=== PATIENT | female | born 1960 | race Hispanic/Latino ===

== ENCOUNTER → 2021-05-06 | Outpatient (CLI) | payer BC ==
[~2021-05-06] MED LIST: ENAL2.5T16 PO; ESTR-7 PO
== END | disposition home or self-care (01) ==
LOC: SHCH 13:41
PROVIDERS: ATTEND Internal Medicine Cardiovascular Disease
DX: R07.9 Chest pain, unspecified (principal); I10 Essential (primary) hypertension; E78.5 Hyperlipidemia, unspecified; R55 Syncope and collapse
CPT/HCPCS: 93306; 93356

== ENCOUNTER 2022-09-04 06:55 | Day surgery (SDC) | payer BC ==
[2022-09-01 12:13] LABS: BASOPHILS % (AUTO) 0.2 % (0.0-5.0); EOSINOPHILS % (AUTO) 0.3 % (0.0-8.0); HEMATOCRIT 41.9 % (36-48); LYMPHOCYTES % (AUTO) 31.7 % (21.0-51.0); MEAN CORPUSCULAR HEMOGLOBIN 30.6 pg (27.0-33.0); MEAN CORPUSCULAR HGB CONC 32.7 g/dL (32.0-36.0); MEAN CORPUSCULAR VOLUME 93.7 fL (79-99); MONOCYTES % (AUTO) 6.6 % (3.0-13.0); PLATELET COUNT (AUTO) 219 K/uL (130-400); RED BLOOD CELL COUNT(AUTO) 4.47 MIL/uL (4.00-5.50); RED CELL DISTRIBUTION WIDTH 12.6 % (11.0-15.5); WHITE BLOOD COUNT (AUTO) 6.5 K/uL (4.8-10.8)
[2022-09-01 12:22] VITALS: BP 140/79
[2022-09-04] VITALS (16 sets, daily range): BP systolic 104–142; BP diastolic 51–77
[~2022-09-04] VITALS: Ht 175.3 cm; Wt 79.5 kg
[2022-09-04] MEDS ORDERED: LACTATED RINGERS 1000ML 1,000 ML IV ONE (07:16)
[2022-09-04] MEDS ORDERED: LIDOCAINE HCL-MPF 1% 5ML AMP IJ ONE (07:29)
[2022-09-04] MEDS ORDERED: PROPOFOL 10 MG/ML 20ML VIAL IV ONE (07:29)
[2022-09-04] MEDS ORDERED: FENTANYL CITRATE PF 50 MCG/1 ML 2ML VIAL ONE (07:30)
[2022-09-04] MEDS: CEFAZOLIN SODIUM 2 GM VIAL IVPB SCH ×2 (07:48→08:08)
[2022-09-04] MEDS ORDERED: ONDANSETRON 4MG INJ ONE ×2 (07:48→09:21)
[2022-09-04] MEDS ORDERED: EPHEDRINE SULFATE 50 MG/ML AMPULE ONE (08:30)
[2022-09-04] MEDS ORDERED: BUPIVACAINE/PF 0.25% 30ML VIAL IJ ONE (08:33)
[2022-09-04] MEDS ORDERED: KETOROLAC 30MG VIAL (30MG/ML) ONE (09:21)
[2022-09-04] MEDS ORDERED: MORPHINE 2 MG SYG ONE (09:22)
[2022-09-04] MEDS ORDERED: IBUP-1493 PO (10:05)
== END 2022-09-04 10:35 | disposition home or self-care (01) ==
LOC: DAH 06:55
PROVIDERS: ATTEND Surgery
DX: D17.1 Benign lipomatous neoplasm of skin and subcutaneous tissue of trunk (principal); Z20.822 Contact with and (suspected) exposure to COVID-19; I10 Essential (primary) hypertension; Z98.890 Other specified postprocedural states; Z82.49 Family history of ischemic heart disease and other diseases of the circulatory system; Z72.89 Other problems related to lifestyle; Z79.899 Other long term (current) drug therapy
CPT/HCPCS: 85025; 87426; 36415; 21931; A6260; A4663; J7120 ×2; A4452; J3010; J3490 ×3; J2704; J2405 ×2; J1885; J0690; A6223; A4215; A4223; A4222; A4221; A4600